=== PATIENT | female | born 1960 | race Caucasian/White ===

== ENCOUNTER → 2017-09-03 | Day surgery (SDC) | payer OTHER ==
--- NOTE | 2017-09-03 09:12 | MMO ---
SPECIMEN RADIOGRAPH: CLINICAL HISTORY: Status post stereotactic biopsy, left breast. FINDINGS: A radiographed specimen view is provided, which reveals calcifications of interest within the excise d specimens. IMPRESSION: Calcifications of interest are present within the excised specimens. POS: [facility]
--- NOTE | 2017-09-03 09:47 | MMO ---
POST PROCEDURE LEFT MAMMOGRAM: History: Status post left breast stereotactic biopsy. FINDINGS: Two views left breast, CC and MLO view provided, status post left stereotactic biopsy. There is a bi opsy marker and clip located within the deep aspect of the slightly outer lower quadrant of the left breast. Calcifications do reside about the clip with interval decrease in number of calcifications status post stereotactic biopsy. IMPRESSION: Biopsy marking clip deployed within the left breast, status post stereotactic biopsy. POS: [facility]
--- NOTE | 2017-09-03 10:13 | MMO ---
LEFT BREAST STEREOTACTIC BIOPSY: History: Calcifications of indeterminate etiology in the left breast requiring further evaluation wi th biopsy. PROCEDURE: Informed consent was obtained. Patient was escorted to the procedural suite and placed in a prone po sition with left breast placed into compression. Standard sterile prepping and draping was performed and calcifications were localized with stereotactic coordinates. Topical anesthesia with buffered 1 % Lidocaine was then performed with a small skin incision made through which a 10 gauge vacuum radhika t stereotactic biopsy needle was advanced to the leading edge of the calcification. Mammographic nasreen ging performed and the needle was then deployed, confirmed within the calcification of interest and subsequently six core specimens were acquired. These specimens were radiographed which revealed calc ifications of interest. Needle was removed. Biopsy clip was then advanced in the core within the sit e of biopsy and then was confirmed with stereotactic imaging. All devices were subsequently removed and the patient tolerated the procedure well without evidence of complication. Post procedure mammog raphic imaging was then performed. IMPRESSION: Technically successful stereotactic biopsy of the left breast. Technically successful clip deployment within the left breast. POS: [facility]
== END ==
LOC: SDC 06:56
PROVIDERS: ATTEND Surgery
PROC: 0HBU3ZX Excision of Left Breast, Percutaneous Approach, Diagnostic (ICD-10-PCS; principal; 2017-09-03)
DX: D05.12 Intraductal carcinoma in situ of left breast (principal)
CPT/HCPCS: 19081; 76098; 88305; 88341; 88342; G0206-LT

== ENCOUNTER 2017-09-08 10:01 | Outpatient (CLI) | payer OTHER ==
[2017-09-08 12:08] LABS: Anion Gap 11 mmol/L (10-20); BUN (Urea Nitrogen) 20 mg/dL (9.8-20.1); Calc. Creatinine Clearance 0 mL/min (70-130); Calcium 9.9 mg/dL (7.8-10.44); Carbon Dioxide 28 mmol/L (22-29); Estimated GFR-MDRD 74
[2017-09-08 12:36] LABS: Chloride 103 mmol/L (98-107)
--- NOTE | 2017-09-17 21:40 | EKG ---
Test Reason : Blood Pressure : / mmHG Vent. Rate : 047 BPM Atrial Rate : 047 BPM P-R Int : 154 ms QRS Dur : 112 ms QT Int : 496 ms P-R-T Axes : 067 075 040 degrees QTc Int : 438 ms Marked sinus bradycardia Incomplete right bundle branch block Abnormal ECG No previous ECGs available Confirmed by TIM ANN (2) on 09/17/2017 9:40:04 PM Referred By: ADRY Confirmed By:TIM ANN
== END 2017-09-08 10:02 | disposition home or self-care (01) ==
LOC: LABBT 10:01
PROVIDERS: ATTEND Surgery
DX: Z01.818 Encounter for other preprocedural examination (principal); C50.912 Malignant neoplasm of unspecified site of left female breast
CPT/HCPCS: 80048; 93005; 93010

== ENCOUNTER 2017-09-12 07:55 | Day surgery (SDC) | payer OTHER ==
[2017-09-08 10:28] VITALS: BMI 20.1
[2017-09-12] MEDS ORDERED: Bupivacaine/Epinephrine 0.25% 30 ML VIAL ONE (11:35)
[2017-09-12] MEDS ORDERED: Fentanyl 100 MCG/2 ML VIAL ONE ×3 (11:41→14:29)
[2017-09-12] MEDS ORDERED: Promethazine HCl 25 MG/ML VIAL ONE (11:54)
[2017-09-12] MEDS ORDERED: Scopolamine 1.5 mg/72 hour Patch ONE (11:54)
[2017-09-12] MEDS ORDERED: Midazolam HCl 2 mg/2 ml Vial ONE (11:55)
[2017-09-12] MEDS ORDERED: CEFAZOLIN/Water 2 GM/20 ML SYRINGE ONE (11:57)
[2017-09-12] MEDS ORDERED: Propofol 200 MG/20 ML VIAL ONE (12:12)
[2017-09-12] MEDS ORDERED: ePHEDrine/0.9% NaCl/PF SYRINGE 50 mg/10 ml ONE (12:12)
[2017-09-12] MEDS ORDERED: Ketorolac Tromethamine 30 MG/ML VIAL ONE (12:12)
[2017-09-12] MEDS ORDERED: Lidocaine 2% PF 10 ML AMP (For Epidural Use) ONE (12:12)
[2017-09-12] MEDS ORDERED: Ondansetron HCl/PF 4 MG/2 ML Vial ONE (12:12)
--- NOTE | 2017-09-12 12:59 | MMO ---
NEEDLE AND WIRE LOCALIZATION OF BIOPSY MARKER CLIP LEFT BREAST: Date: 09/12/17 HISTORY: Left breast carcinoma. TECHNIQUE: The biopsy marker clip left breast was localized from an inferior approach. The area was marked and meticulously prepped in usual fashion. Skin and subcutaneous tissues were infiltrated with buffered 1% lidocaine for local anesthesia. A 7.0 cm [place] localization needle and guidewire were advanced. T he patient did experience vasovagal episode and was placed in a semirecumbent position with prompt i mprovement in recovery from the episode. Additional views of the left breast were then obtained in t he mediolateral and CC projections demonstrating a localization needle to be just anterior to the bi opsy marker clip in the inferior aspect of the left breast. The needle was more distal to the locali zation clip, but due to patient's recent vasovagal episode, the needle was not further withdrawn to avoid risking withdrawing the needle a further distance from the clip. These findings were discussed with Dr. Lentz at this time. A dry, sterile dressing was placed. The patient tolerated the proced ure well and without immediate complication. The patient was transported to nuclear medicine for [facility] t breast lymphoscintigraphy. The patient tolerated the procedure well and without immediate complica tion. IMPRESSION: Technically successful needle and wire localization of biopsy marker clip in the lower left breast. POS: [facility]
--- NOTE | 2017-09-12 14:11 | NM ---
LEFT BREAST LYMPHOSCINTIGRAPHY: DATE: 09/12/17. HISTORY: Intraductal carcinoma in situ left breast. RADIOPHARMACEUTICAL: 383 mCi Technetium 99m filtered sulfur colloid, subcutaneously. FINDINGS: Technetium 99m sulfur colloid was injected in a periareolar region in 4 separate aliquots. Imaging in the anterior and lateral projection was then performed. There is a focal area of increased uptak e of radiotracer within the left axilla likely related to sentinel lymph node. After visualization of this region, the patient was transported to surgery for further treatment. IMPRESSION: Focal area of uptake in the left axilla, likely corresponding to sentinel lymph node. POS: [facility]
--- NOTE | 2017-09-12 14:29 | MMO ---
LEFT BREAST SPECIMEN MAMMOGRAM: DATE: 09/12/17. HISTORY: Patient recently post lumpectomy after needle and wire localization of biopsy marker clip in the lef t breast. FINDINGS: A single specimen is submitted in the specimen mammogram. Specimen contains a biopsy marker clip wi th adjacent microcalcifications. The localization needle and guidewire are noted within the provide d specimen. IMPRESSION: Specimen mammogram contains the localization biopsy marker clip as well as microcalcifications. Skyler mccullough were discussed with Dr. Lentz in the operating room by Jennifer, electronic lab technician. CODE CR POS: [facility]
[2017-09-12] MEDS ORDERED: HYDROcodone/Acetaminophen 5/325 mg Tablet ONE ×2 (15:22→16:51)
--- NOTE | 2017-09-15 13:38 | OP ---
DATE OF SERVICE: 09/12/2017 PREOPERATIVE DIAGNOSIS: High grade ductal carcinoma in situ, left breast. POSTOPERATIVE DIAGNOSIS: High grade ductal carcinoma in situ, left breast. PROCEDURES: 1. Left partial mastectomy after needle localization. 2. Left deep axillary node biopsy (sentinel node protocol). SURGEON: Ray Lentz M.D. ANESTHESIA: General. ESTIMATED BLOOD LOSS: Minimal. COMPLICATIONS: None. SPECIMEN: Left breast mass marked with two short superior, one long lateral and sent to path for fin al diagnosis. [place] nodes sent to path for final diagnosis. INDICATION: The patient is a 57-year-old female who recently had core needle biopsy of a mammographi c abnormality which revealed high grade DCIS. Risks, benefits, and alternatives discussed. She gave consent. She consented to lumpectomy. TECHNIQUE: The patient underwent preop placement of needle localization wire and lymphoscintigraphy on the morning of surgery, taken to the operating room and laid supine on the table. After general a nesthetic was obtained, 5 mL of methylene blue dye was infiltrated over the nipple and massaged for 1 0 minutes. The left breast and chest were prepped and draped in a sterile fashion. Incision was mad e on the inferior hairline of the left axilla. Neoprobe was used to find an area of increased uptake . There was a blue node that had severe high uptake on the back table. It was sent as sentinel node #1. The background count dropped to zero. The wound was irrigated and closed using 3-0 Vicryl, 4-0 Monocryl, and Dermabond. Next, a curved incision was made on the inferior aspect of the areola and flaps were raised superiorl y, medially, inferiorly, laterally around the localization wire. Specimen was sent to x-ray. Specim en x-ray revealed the previous biopsy clip to be in the specimen. Specimen was then sent to path for final diagnosis. This wound was irrigated and closed using 3-0 Vicryl, 4-0 Monocryl, and Dermabond. The patient was en route to recovery in stable condition. All instrument counts, needle counts, an d lap counts were correct.
== END 2017-09-12 16:55 | disposition home or self-care (01) ==
LOC: SDC 07:55
PROVIDERS: ATTEND Surgery
PROC: 0HBU0ZZ Excision of Left Breast, Open Approach (ICD-10-PCS; principal; 2017-09-12)
DX: D05.12 Intraductal carcinoma in situ of left breast (principal); Z79.899 Other long term (current) drug therapy; Z98.890 Other specified postprocedural states
CPT/HCPCS: 19281; 76098; 78195; 88307; 88331; 88334; 96374; A9541; J1170; J1885; J2001; J2250; J2405; J2550; J2704; J3010; Q9968

== ENCOUNTER 2018-08-06 14:50 | Outpatient (CLI) | payer OTHER | END 2018-08-06 14:51 | disposition home or self-care (01) | LOC: BICMAMMO 14:50 | PROVIDERS: ATTEND Obstetrics & Gynecology | DX: Z08 Encounter for follow-up examination after completed treatment for malignant neoplasm (principal); Z85.3 Personal history of malignant neoplasm of breast; Z80.3 Family history of malignant neoplasm of breast | CPT/HCPCS: 77063; 77067 ==

== ENCOUNTER 2019-10-19 14:33 | Outpatient (CLI) | payer OTHER ==
--- NOTE | 2019-10-19 15:59 | MMO ---
Bilateral MAMMO Bilat Diag DDI+NOE. CLINICAL HISTORY: Patient is 59 years old and is seen for diagnostic exam. The patient has no family history of breast cancer. The patient has a history of lumpectomy procedure revealed intraductal carcinoma micro-papillary in the left breast in September, and Stereotactic core biopsy procedure revealed intraductal carcinoma, high grade in the left breast in September,. The patient has a history of left Stereotatic Biopsy in 2017 - malignant. VIEWS: The views performed were: bilateral craniocaudal with tomosynthesis; bilateral mediolateral oblique with tomosynthesis; and bilateral mediolateral with tomosynthesis. FILMS COMPARED: The present examination has been compared to prior imaging studies performed at [facility] on 08/01/2017, 08/05/2017, 08/06/2018 and 10/19/2019. This study has been interpreted with the assistance of computer-aided detection. MAMMOGRAM FINDINGS: The breasts are heterogeneously dense, which could obscure a lesion on mammography. Finding 1: There is a stable area of architectural distortion and a stable post-surgical scar seen in the left breast. Finding 2: There are benign appearing calcifications seen in both breasts. Finding 3: There is an equal density, oval mass measuring 8 millimeters seen in the middle region of the right breast at 6 o'clock. There are no suspicious masses, suspicious calcifications, or new areas of architectural distortion. IMPRESSION: FINDING 1: STABLE AREA OF ARCHITECTURAL DISTORTION AND POST-SURGICAL SCAR IN THE LEFT BREAST ARE BENIGN. FINDING 2: CALCIFICATIONS IN BOTH BREASTS ARE BENIGN. FINDING 3: MASS IN THE RIGHT BREAST IS BENIGN. THE PATIENT WAS INFORMED OF THE EXAM RESULTS. A ROUTINE FOLLOW-UP MAMMOGRAM IN 1 YEAR IS RECOMMENDED. THE RESULTS OF THIS EXAM WERE SENT TO THE PATIENT. ACR BI-RADS Category 2 - Benign finding MAMMOGRAPHY NOTE: 1. A negative mammogram report should not delay a biopsy if a dominant of clinically suspicious mass is present. 2. Approximately 10% to 15% of breast cancers are not detected by mammography. 3. Adenosis and dense breasts may obscure an underlying neoplasm. Reported by: EDILBERTO FARIA MD Electonically Signed: [id number]
--- NOTE | 2019-10-19 16:17 | ULT ---
RIGHT BREAST DIAGNOSTIC ULTRASOUND: 10/19/19 INDICATION: Lesion within the right breast. FINDINGS: Within the right breast 6 o'clock position, 1 cm from the nipple, there is an 8 mm cyst within the ri ght breast. IMPRESSION: BIRADS 2: Benign Finding(s) Routine annual screening mammography (for women over age 40). Please see the separately dictated bilateral diagnostic mammogram for further detail. POS: OFF
== END 2019-10-19 14:34 | disposition home or self-care (01) ==
LOC: BICMAMMO 14:33
PROVIDERS: ATTEND Family Medicine
DX: D05.12 Intraductal carcinoma in situ of left breast (principal); R92.1 Mammographic calcification found on diagnostic imaging of breast; N63.10 Unspecified lump in the right breast, unspecified quadrant; Z98.890 Other specified postprocedural states
CPT/HCPCS: 77066; G0279

== ENCOUNTER 2020-10-20 13:37 | Outpatient (CLI) | payer OTHER ==
--- NOTE | 2020-10-20 14:12 | MMO ---
Bilateral MAMMO Bilat Diag DDI+NOE. CLINICAL HISTORY: Patient is 60 years old and is seen for diagnostic exam. The patient has no family history of breast cancer. The patient has a history of lumpectomy procedure revealed intraductal carcinoma micro-papillary in the left breast in September, and Stereotactic core biopsy procedure revealed intraductal carcinoma, high grade in the left breast in September,. The patient has a history of left Stereotatic Biopsy in 2017 - malignant. VIEWS: The views performed were: bilateral craniocaudal with tomosynthesis; bilateral mediolateral oblique with tomosynthesis; and bilateral mediolateral with tomosynthesis. FILMS COMPARED: The present examination has been compared to prior imaging studies performed at [facility] on 08/05/2017, 08/06/2018 and 10/19/2019. This study has been interpreted with the assistance of computer-aided detection. MAMMOGRAM FINDINGS: The breasts are heterogeneously dense, which could obscure a lesion on mammography. Finding 1: There is an area of architectural distortion with associated post-surgical scar seen in the left breast. Finding 2: There are benign appearing calcifications seen in both breasts. Finding 3: There is a stable round mass with circumscribed margins seen in the right breast. There are no suspicious masses, suspicious calcifications, or new areas of architectural distortion. IMPRESSION: THERE IS NO MAMMOGRAPHIC EVIDENCE OF MALIGNANCY. A ROUTINE FOLLOW-UP MAMMOGRAM IN 1 YEAR IS RECOMMENDED. THE RESULTS OF THIS EXAM WERE SENT TO THE PATIENT. ACR BI-RADS Category 2 - Benign finding MAMMOGRAPHY NOTE: 1. A negative mammogram report should not delay a biopsy if a dominant of clinically suspicious mass is present. 2. Approximately 10% to 15% of breast cancers are not detected by mammography. 3. Adenosis and dense breasts may obscure an underlying neoplasm. Reported by: ZI PUTNAM MD Electonically Signed: [id number]
== END 2020-10-20 13:38 | disposition home or self-care (01) ==
LOC: BICMAMMO 13:37
PROVIDERS: ATTEND Obstetrics & Gynecology
DX: Z08 Encounter for follow-up examination after completed treatment for malignant neoplasm (principal); Z85.3 Personal history of malignant neoplasm of breast
CPT/HCPCS: 77066; G0279

== ENCOUNTER 2021-10-18 09:19 | Outpatient (CLI) | payer BC | END 2021-10-18 09:20 | disposition home or self-care (01) | LOC: BICMAMMO 09:19 | PROVIDERS: ATTEND Family Medicine | DX: Z08 Encounter for follow-up examination after completed treatment for malignant neoplasm (principal); Z85.3 Personal history of malignant neoplasm of breast | CPT/HCPCS: 77066; G0279 ==